=== PATIENT | female | born 1975 | race African-American/Black ===

== ENCOUNTER → 2016-07-16 | Outpatient (CLI) | payer OTHER ==
[2016-07-16 11:02] LABS: PLATELET COUNT 107 x10^3mcL (130-400); RED CELL DISTRIBUTION WIDTH 15.4 % (11.5-14.5)
[2016-07-16 11:13] LABS: ALBUMIN 3.5 g/dL (3.4-5.0); ALKALINE PHOSPHATASE 251 U/L (46-116); ALT/SGPT 434 U/L (14-59); AST/SGOT 558 U/L (15-37); BILIRUBIN TOTAL 0.59 mg/dL (0.20-1.00); CALCIUM 8.4 mg/dL (8.5-10.1); CARBON DIOXIDE 28.4 mmol/L (21-32); CHLORIDE SERUM 106 mmol/L (98-107); CREATININE SERUM 0.7 mg/dL (0.6-1.0); GFR1 > 60 mL/min; GLUCOSE SERUM 86 mg/dL (74-106); POTASSIUM SERUM 4.5 mmol/L (3.5-5.1); SODIUM SERUM 141 mmol/L (136-145); TOTAL PROTEIN, SERUM 7.1 g/dL (6.4-8.2); TRIGLYCERIDES 118 mg/dL (<150)
[2016-07-16 11:21] LABS: CHOLESTEROL 116 mg/dL (<200); CHOLESTEROL/HDL RATIO 3.6; HDL CHOLESTEROL 32 mg/dL (40-60)
[2016-07-16 11:28] LABS: BAND NEUTROPHIL 0 % (0-10); BASOPHIL 0 % (0-2); MONOCYTE 3 % (0-7); SEGMENTED NEUTROPHILS 22 % (37-75)
== END | disposition home or self-care (01) ==
LOC: LB 10:11
DX: Z00.00 Encounter for general adult medical examination without abnormal findings (principal); I10 Essential (primary) hypertension

== ENCOUNTER → 2016-07-21 | Outpatient (CLI) | payer OTHER ==
[2016-07-21 10:56] LABS: AMYLASE 102 U/L (25-115); C REACTIVE PROTEIN 3.7 mg/dL (<=0.9); LIPASE 354 IU/L (73-393)
== END | disposition home or self-care (01) ==
LOC: US 09:00
PROC: BW40ZZZ Ultrasonography of Abdomen (ICD-10-PCS; principal; 2016-07-21)
DX: D69.6 Thrombocytopenia, unspecified (principal); E56.9 Vitamin deficiency, unspecified; R60.9 Edema, unspecified; R74.8 Abnormal levels of other serum enzymes
CPT/HCPCS: 86308; 86644; 86645

== ENCOUNTER → 2016-08-15 | Outpatient (CLI) | payer OTHER ==
[2016-08-15 10:45] LABS: ALKALINE PHOSPHATASE 471 U/L (46-116); ALT/SGPT 498 U/L (14-59); AST/SGOT 527 U/L (15-37); BILIRUBIN TOTAL 0.7 mg/dL (0.20-1.00); CALCIUM 8.7 mg/dL (8.5-10.1); CARBON DIOXIDE 27.4 mmol/L (21-32); CHLORIDE SERUM 100 mmol/L (98-107); CREATININE SERUM 0.8 mg/dL (0.6-1.0); GFR1 > 60 mL/min; GLUCOSE SERUM 91 mg/dL (74-106); MAGNESIUM 1.5 mg/dL (1.8-2.4); PHOSPHOROUS 3.4 mg/dL (2.5-4.9); POTASSIUM SERUM 4.3 mmol/L (3.5-5.1); SODIUM SERUM 134 mmol/L (136-145); TOTAL PROTEIN, SERUM 6.7 g/dL (6.4-8.2)
[2016-08-15 10:55] LABS: ALBUMIN 3.1 g/dL (3.4-5.0); GAMMA GLUTAMYL TRANSPEPTIDASE 125 U/L (5-85)
== END | disposition home or self-care (01) ==
LOC: LB 09:51
DX: A68.9 Relapsing fever, unspecified (principal); R16.2 Hepatomegaly with splenomegaly, not elsewhere classified; R74.8 Abnormal levels of other serum enzymes
CPT/HCPCS: 83520; 86200; 86256

== ENCOUNTER → 2016-08-20 | Outpatient (CLI) | payer OTHER ==
[2016-08-20 11:24] LABS: ALBUMIN 3.2 g/dL (3.4-5.0); ALKALINE PHOSPHATASE 466 U/L (46-116); ALT/SGPT 870 U/L (14-59); AST/SGOT 830 U/L (15-37); BILIRUBIN TOTAL 0.51 mg/dL (0.20-1.00); CALCIUM 8.7 mg/dL (8.5-10.1); CARBON DIOXIDE 24.7 mmol/L (21-32); CHLORIDE SERUM 105 mmol/L (98-107); CREATININE SERUM 0.8 mg/dL (0.6-1.0); GFR1 > 60 mL/min; GLUCOSE SERUM 89 mg/dL (74-106); POTASSIUM SERUM 4.3 mmol/L (3.5-5.1); SODIUM SERUM 139 mmol/L (136-145)
== END | disposition home or self-care (01) ==
LOC: LB 10:04
DX: R50.9 Fever, unspecified (principal)
CPT/HCPCS: 85613

== ENCOUNTER → 2016-08-23 | Outpatient (CLI) | payer OTHER ==
[2016-08-23 13:50] LABS: BASOPHIL % 0.1 % (0-2); PLATELET COUNT 134 x10^3mcL (130-400)
[2016-08-23 13:56] LABS: RED CELL DISTRIBUTION WIDTH 18.8 % (11.5-14.5)
== END | disposition home or self-care (01) ==
LOC: LB 13:06
DX: A68.9 Relapsing fever, unspecified (principal); R16.2 Hepatomegaly with splenomegaly, not elsewhere classified; R74.8 Abnormal levels of other serum enzymes
CPT/HCPCS: 82390

== ENCOUNTER → 2016-08-24 | Outpatient (CLI) | payer OTHER | END | disposition home or self-care (01) | LOC: CT 08:57 | PROC: BW251ZZ Computerized Tomography (CT Scan) of Chest, Abdomen and Pelvis using Low Osmolar Contrast (ICD-10-PCS; principal; 2016-08-24) | DX: R16.2 Hepatomegaly with splenomegaly, not elsewhere classified (principal) | CPT/HCPCS: Q9967 ==

== ENCOUNTER → 2016-09-14 | Outpatient (CLI) | payer OTHER ==
[2016-09-14 12:42] LABS: PLATELET COUNT 130 x10^3mcL (130-400)
[2016-09-14 12:46] LABS: RED CELL DISTRIBUTION WIDTH 18.5 % (11.5-14.5)
[2016-09-14 13:09] LABS: IRON 36 ug/dL (50-170); TOTAL IRON BINDING CAPACITY 352 ug/dL (250-450)
[2016-09-14 13:10] LABS: BILIRUBIN DIRECT 0.16 mg/dL (0.0-0.2); BILIRUBIN TOTAL 0.4 mg/dL (0.20-1.00); C REACTIVE PROTEIN 1.6 mg/dL (<=0.9); T4(THYROXINE) 11.1 ug/dL (4.7-13.3); TOTAL PROTEIN, SERUM 6.9 g/dL (6.4-8.2)
[2016-09-14 13:11] LABS: ALBUMIN 3.3 g/dL (3.4-5.0)
[2016-09-14 15:01] LABS: ATYPICAL LYMPH 15 %; BAND NEUTROPHIL 4 % (0-10); BASOPHIL 0 % (0-2); MONOCYTE 4 % (0-7); SEGMENTED NEUTROPHILS 21 % (37-75); rbc morphology (normal/abnorm) ABNORMAL (NORMAL)
== END | disposition home or self-care (01) ==
LOC: LB 12:01
PROVIDERS: Internal Medicine Gastroenterology
DX: R50.9 Fever, unspecified (principal); R94.5 Abnormal results of liver function studies
CPT/HCPCS: 82390; 86376

== ENCOUNTER → 2016-10-01 | Day surgery (SDC) | payer OTHER ==
[~2016-10-01] VITALS: Ht 149.9 cm; Wt 41.3 kg
[2016-10-01 11:00] VITALS: BP 102/67
[2016-10-01 11:25] VITALS: BP 102/67
--- NOTE | 2016-10-01 13:15 | NUR ---
1100 PATIENT ARRIVES TO UNIT AMBULATORY. PATIENT ALERT AND AWAKE AND ABLE TO MAKE ALL NEEDS KNOWN. NO SOB NOTED. RESPIRATIONS EVEN AND UNLABORED. DENIES ANY PAIN OR DISTRESS AT THIS TIME. PATIENT PROVIDED TEACHING REGARDING PLAN OF CARE AND VERBALIZES UNDERSTANDING. MEDICAL HISTORY VERIFIED. ALLERGIES ADDRESSED. PATIENT MADE COMFORTABLE. ALL NEEDS MET AT THIS TIME. CALL LIGHT WITHIN REACH. WILL CONTINUE TREATMENT PLAN.
--- NOTE | 2016-10-01 13:16 | NUR ---
1115 PERIPHERAL IV INSERTED TO LFA 22G WITH GOOD BLOOD RETURN NOTED. PATIENT TOLERATED WELL WITH NO COMMPLAINTS. ALL NEEDS MET. CALL LIGHT WITHIN REACH. WILL CONTINUE TO MONITOR.
--- NOTE | 2016-10-01 13:17 | NUR ---
1310 CALLED AND SPOKE WITH SILVANO ROSSI. PER SILVANO, AWAITING ULTRASOUND FOR PROCEDURE AT THIS TIME.
--- NOTE | 2016-10-01 13:34 | NUR ---
1330 PATIENT TRANSPORTED TO RADIOLOGY DEPT AT THIS TIME ACCOMPANIED BY SILVANO RN. PATIENT ALERT AND AWAKE AND ABLE TO MAKE ALL NEEDS KNOWN. NO SOB NOTED. RESPIRATIONS EVEN AND UNLABORED. DENIES ANY PAIN OR DISTRESS AT THIS TIME. WILL CONTINUE TO MONITOR.
[2016-10-01 14:05] VITALS: BP 118/79
--- NOTE | 2016-10-01 14:14 | NUR ---
[id number] PATIENT RECEIVED BACK TO UNIT VIA WHEELCHAIR AND ACCOMPANIED BY SILVANO RN. BEDSIDE ENDORSEMENT RECEIVED. PATIENT ALERT AND AWAKE AND ABLE TO MAKE ALL NEEDS KNOWN. NO SOB NOTED. RESPIRATIONS EVEN AND UNLABORED. DENIES ANY PAIN OR DISTRESS AT THIS TIME. DRESSING NOTED TO SITE C/D/I. PATIENT PROVIDED TEACHING REGARDING DISCHARGE PLAN OF CARE AND VERBALIZED UNDERSTANDING. ALL NEEDS MET AT THIS TIME. CALL LIGHT WITHIN REACH. WILL CONTINUE TREATMENT PLAN.
[2016-10-01 15:05] VITALS: BP 100/72
--- NOTE | 2016-10-01 15:17 | NUR ---
1505 PATIENT ALERT AND AWAKE AND ABLE TO MAKE ALL NEEDS KNOWN. NO SOB NOTED. RESPIRATIONS EVEN AND UNLABORED. DENIES ANY PAIN OR DISTRESS AT THIS TIME. PATIENT ABLE TO TOLERATE PO INTAKE WITH NO COMPLAINTS. DRESSING TO BIOPSY SITE REMAINS C/D/I. PERIPHERAL IV REMOVED WITH CATHETER INTACT. NO BLEEDING OR PAIN AT SITE NOTED. PATIENT ABLE TO AMBULATE TO BATHROOM AND VOID WITH NO COMPLAINTS. PATIENT TRANSPORTED TO WHEELCHAIR VIA PRIVATE VEHICLE FOR DISCHARGE HOME AT THIS TIME. ALL NEEDS MET.
== END | disposition home or self-care (01) ==
LOC: DS 10:52 → CT 13:00
PROC: 0FB13ZX Excision of Right Lobe Liver, Percutaneous Approach, Diagnostic (ICD-10-PCS; principal; 2016-10-01)
DX: D72.820 Lymphocytosis (symptomatic) (principal); B34.9 Viral infection, unspecified; K76.0 Fatty (change of) liver, not elsewhere classified; R94.5 Abnormal results of liver function studies; R50.9 Fever, unspecified; Z68.1 Body mass index [BMI] 19.9 or less, adult
CPT/HCPCS: J2001

== ENCOUNTER 2016-10-06 06:58 | Day surgery (SDC) | payer OTHER ==
[~2016-10-06] VITALS: Ht 149.9 cm; Wt 41.3 kg
[2016-10-06 07:28] VITALS: BP 109/72
[2016-10-06 10:24] VITALS: BP 104/77
== END 2016-10-06 10:15 | disposition home or self-care (01) ==
LOC: GI 06:58 → OR 07:30 → GI 07:30
PROVIDERS: Internal Medicine Gastroenterology
PROC: 0DB68ZX Excision of Stomach, Via Natural or Artificial Opening Endoscopic, Diagnostic (ICD-10-PCS; principal; 2016-10-06 07:30)
PROC: 0DJD8ZZ Inspection of Lower Intestinal Tract, Via Natural or Artificial Opening Endoscopic (ICD-10-PCS; 2016-10-06 07:30)
DX: K29.50 Unspecified chronic gastritis without bleeding (principal); B96.81 Helicobacter pylori [H. pylori] as the cause of diseases classified elsewhere; D50.9 Iron deficiency anemia, unspecified; R63.4 Abnormal weight loss; Z68.1 Body mass index [BMI] 19.9 or less, adult
CPT/HCPCS: 43235; 45378; J1200; J1610; J2250; J2310; J3010; J3490